=== PATIENT | female | born 1970 | race Caucasian/White ===

== ENCOUNTER → 2016-06-13 | Outpatient (CLI) | payer OTHER ==
--- NOTE | 2016-06-13 18:18 | DX ---
Lumbar Spine, AP and Lateral Views, at 5:51 p.m. Clinical History: 46-year-old female who had spinal fusion last year, and is complaining of some pain at the level of the hardware. ICD 10 Diagnostic Code: M54.5. Comparison Study: Lumbar spine radiographs, dated August 26, 2015. Findings: The patient has undergone posterior spinal fusion at the L2-L3 levels, with dorsally-situat ed arthrodesis rods secured by bilateral transpedicular screws which terminate in each respective denise trum; however, there appears to be some mild periprosthetic lucency along the screw tracts, which cou ld potentially represent some evidence of early loosening. These findings are more pronounced at the L3 than at the L2 level. There is stable L2-3 and L3-4 posterolistheses. An interbody bone graft is p resent between L2 and L3. There is severe degenerative disk space narrowing at L1-L2, where there is endplate sclerosis and ventral traction osteophyte formation. The interpediculate distances are jeny l. There is slight left lateral offset of L1 above L2 (although this is also unchanged). The SI joint s appear normal. There is an intrauterine device again present in the pelvis. Impression: 1. Postoperative changes following prior arthrodesis at the L2-L3 level. There is some slight peripro sthetic lucency associated with the transpedicular screws at the level of each respective centrum (L3 more than L2), and some early loosening cannot be excluded. 2. Advanced degenerative disk disease at L1-L2, similar to the previous study. 3. Trace L2-L3 and L3-L4 posterolistheses, stable from 08/26/15.
== END ==
LOC: BMCIMAGING 17:52
PROVIDERS: ATTEND Family Medicine
DX: M54.9 Dorsalgia, unspecified (principal); Z98.1 Arthrodesis status; M51.36 Other intervertebral disc degeneration, lumbar region; M43.16 Spondylolisthesis, lumbar region; R93.8 Abnormal findings on diagnostic imaging of other specified body structures

== ENCOUNTER → 2016-11-21 | Outpatient (CLI) | payer OTHER | LOC: FIMAGING 08:15 | PROVIDERS: ATTEND Internal Medicine | DX: Z12.31 Encounter for screening mammogram for malignant neoplasm of breast (principal) | CPT/HCPCS: G0202 ==

== ENCOUNTER → 2016-11-30 | Outpatient (CLI) | payer OTHER | LOC: BMCIMAGING 13:35 | PROVIDERS: ATTEND Podiatrist Foot & Ankle Surgery | DX: M25.771 Osteophyte, right ankle (principal) ==

== ENCOUNTER → 2017-11-22 | Outpatient (CLI) | payer OTHER | LOC: FIMAGING 08:34 | PROVIDERS: ATTEND Internal Medicine | DX: Z12.31 Encounter for screening mammogram for malignant neoplasm of breast (principal); Z80.3 Family history of malignant neoplasm of breast ==

== ENCOUNTER 2018-10-17 16:22 | Emergency (ER) | payer OTHER | END 2018-10-17 18:13 | disposition home or self-care (01) ==